=== PATIENT | female | born 1980 | race Caucasian/White ===

== ENCOUNTER 2016-09-16 23:51 | Emergency (ER) | payer MEDICAID ==
--- NOTE | 2016-09-17 08:24 | NUR ---
Received SAD person referral. Pt was EPC'd to [facility].
--- NOTE | 2016-09-18 13:24 | ER ---
ADMIT: 09/16/2016 RM/LOC: ER [facility] MR#: [id number] [place], [place] [id number] SUSHILA BELLO [address] [address] Emergency Room Report SEX: F AGE: 36 : 1980 DATE: 09/16/2016 TIME: 2351 Please refer to my T-sheet for complete H and P. HISTORY OF PRESENT ILLNESS: Briefly, the patient is a 36-year-old that police and paramedics were involved and that she was attempted to hurt herself by cutting her right wrist. She has very superficially cut her right wrist, she has been depressed, so drinking alcohol. She has a psychiatric history. She follows a psychiatrist for. She has been at [facility] before. PHYSICAL EXAMINATION: VITAL SIGNS: Blood pressure 128/85, pulse 82, respirations 16, temp 98.7, saturating 100%. GENERAL: No acute distress. HEENT: Grossly normal. LUNGS: Clear. HEART: Regular. ABDOMEN: Soft. NEURO: She has a depressed mood, but no acute findings. EXTREMITIES: Reveal a superficial abrasion to her right wrist. No suturable lacerations. EMERGENCY DEPARTMENT COURSE: The EPC labs were obtained. CBC normal, chemistries normal, except potassium 3.6. UA; 2+ leukocyte esterase, 18 white cells, 3 reds. ETOH was 236. Tylenol was negative. Aspirin level negative. Thyroid studies okay. We updated her tetanus shot. She was volunteer commitment, Dr. Chang accepted over at [facility]. The police will drive her there. ASSESSMENT: 1. Acute suicidal ideation. 2. Depression. 3. EtOH abuse. 4. Right wrist abrasion. PLAN: To [facility] under the care of Dr. Chang. Chris Brar MD/ erika JOB #: [id number] CC: Chris Brar MD, Attending Physician Pancho Alexandre MD, Family Physician
== END 2016-09-17 01:30 ==
LOC: ER 23:51
DX: S60.811A Abrasion of right wrist, initial encounter (principal); F32.9 Major depressive disorder, single episode, unspecified; R45.851 Suicidal ideations; F10.10 Alcohol abuse, uncomplicated; Z23 Encounter for immunization; Z79.899 Other long term (current) drug therapy; W45.8XXA Other foreign body or object entering through skin, initial encounter

== ENCOUNTER 2016-10-11 22:39 | Emergency (ER) | payer MEDICAID ==
--- NOTE | 2016-10-12 18:58 | ER ---
ADMIT: 10/11/2016 RM/LOC: ER [facility] MR#: [id number] [id number] SUSHILA BELLO [address] [address] Emergency Room Report SEX: F AGE: 36 : 1980 DATE: 10/11/2016 The patient is a 36-year-old female with PTSD, previous suicidal ideation, bipolar, and hypothyroidism, was drinking tonight, threatened suicide by cutting her left wrist and abdomen. Transported by [facility]. Exam remarkable for hysterical, intoxicated female, superficial abrasions, left volar wrist and anterior abdominal wall. Wounds were cleansed with soap and water. ETOH 264. Free T4 1.54. Normal free T3. Normal TSH. The patient is on thyroid replacement. The patient was given Geodon 5 mg and Ativan 1 mg IM for agitated psychosis, yelling, and increased psychomotor tone. Slept for 3 hours. Ambulated to the restroom. Transported by [facility] to [facility]. Reji Gomez MD/ erika JOB #: [id number] CC: Reji Gomez MD, Attending Physician Melia Vaughn PA-C
--- NOTE | 2016-10-14 13:56 | NUR ---
SAD person referral. Patient was taking to [facility].
== END 2016-10-12 02:48 ==
LOC: ER 22:39
DX: S60.812A Abrasion of left wrist, initial encounter (principal); F10.10 Alcohol abuse, uncomplicated; F31.9 Bipolar disorder, unspecified; T14.91 Suicide attempt; E03.9 Hypothyroidism, unspecified; Y08.89XA Assault by other specified means, initial encounter; Z79.899 Other long term (current) drug therapy